=== PATIENT | female | born 1990 | race Caucasian/White ===

== ENCOUNTER 2020-02-10 20:48 | Emergency (ER) | payer OTHER ==
[~2020-02-10] VITALS: Wt 99.8 kg
[~2020-02-10 20:48] MED LIST: AMOXIL500 MG PO; HYDROCODONE BIT1 T11 PO; VICODIN 5/500 505 M1 PO; ZANTAC 150150 MG PO
[2020-02-10] MEDS ORDERED: PRENATAL VITAM1 EAC7 PO (20:59)
[2020-02-10] MEDS ORDERED: AMOXICILLIN500 M2 PO (20:59)
[2020-02-10] MEDS ORDERED: CLINDAMYCIN HC300 MG PO (21:28)
== END 2020-02-10 21:50 | disposition home or self-care (01) ==
LOC: ED 20:48
DX: L02.91 Cutaneous abscess, unspecified (principal); K04.01 Reversible pulpitis; K02.9 Dental caries, unspecified; F17.200 Nicotine dependence, unspecified, uncomplicated; Z79.899 Other long term (current) drug therapy

== ENCOUNTER → 2021-02-07 | Outpatient (CLI) | payer OTHER ==
[~2021-02-07] MED LIST changes: +AMOXICILLIN500 M2 PO; +CLINDAMYCIN HC300 MG PO; +PRENATAL VITAM1 EAC7 PO
[2021-02-07 13:45] LABS: HEMATOCRIT 41.5 % (37.0-47.0); MEAN CELL VOLUME 78.9 fl (81.0-99.0); MEAN CORPUSCULAR HGB 24.9 pg (27.0-31.0); MEAN CORPUSCULAR HGB CONC 31.6 g/dl (33.0-37.0); MEAN PLATELET VOLUME 9.6 fl (9.6-12.3); RED BLOOD COUNT 5.26 10*6/uL (4.10-5.10); RED CELL DISTRI WIDTH 15.4 % (0-14.5); WHITE BLOOD COUNT 8.9 10*3/uL (4.8-10.8)
[2021-02-07 14:15] LABS: ALBUMIN 3.4 gm/dl (3.1-4.5); ALKALINE PHOSPHATASE 108 U/L (45-117); BUN 16 mg/dl (7-24); CHLORIDE 107 mmol/L (98-107); CREATININE 0.66 mg/dL (0.55-1.02); FREE T4 0.78 ng/dl (0.76-1.46); POTASSIUM 4.1 mmol/L (3.5-5.1); SGOT/AST 13 IU/L (3-35); SGPT/ALT 30 U/L (12-78); SODIUM 139 mmol/L (136-145); TOTAL PROTEIN 7.4 gm/dL (6.4-8.2)
== END | disposition home or self-care (01) ==
LOC: LAB 13:13
PROVIDERS: ATTEND Family Medicine
DX: F41.1 Generalized anxiety disorder (principal); R53.83 Other fatigue; E74.00 Glycogen storage disease, unspecified; E89.0 Postprocedural hypothyroidism

== ENCOUNTER → 2021-02-22 | Outpatient (CLI) | payer OTHER | END | disposition home or self-care (01) | LOC: US 16:52 | PROVIDERS: ATTEND Family Medicine | DX: E04.2 Nontoxic multinodular goiter (principal) ==

== ENCOUNTER 2021-03-21 22:59 | Emergency (ER) | payer OTHER ==
[~2021-03-21] VITALS: Ht 165.1 cm; Wt 104.3 kg
[2021-03-21] MEDS ORDERED: PREDNISONE20 M1 PO (23:25)
== END 2021-03-21 23:42 | disposition home or self-care (01) ==
LOC: ED 22:59
DX: L23.7 Allergic contact dermatitis due to plants, except food (principal); Z79.899 Other long term (current) drug therapy; Z98.890 Other specified postprocedural states

== ENCOUNTER → 2021-07-09 | Outpatient (CLI) | payer OTHER ==
[~2021-07-09] MED LIST changes: +PREDNISONE20 M1 PO
== END | disposition home or self-care (01) ==
LOC: COVID19 18:41
PROVIDERS: ATTEND Internal Medicine
DX: Z11.52 Encounter for screening for COVID-19 (principal)